=== PATIENT | male | born 1960 | race Caucasian/White ===

== ENCOUNTER → 2018-01-07 16:35 | Outpatient (CLI) | payer OTHER, SELFPAY ==
[2018-01-07 17:57] LABS: Albumin, Serum 3.9 g/dL (3.2-5.0)
== END ==
PROVIDERS: Family Provider Family Medicine; PCP Family Medicine; Referring Provider Specialist; Visit Provider Specialist
DX: M16.12 Unilateral primary osteoarthritis, left hip (principal)
CPT/HCPCS: 36415; 82040

== ENCOUNTER 2018-03-12 06:15 | Day surgery (SDC) | payer OTHER, SELFPAY ==
--- NOTE | 2018-02-25 23:17 | HP.PCM_ITS ---
History and Physical DATE OF SURGERY: 03/12/2018 SCHEDULED PROCEDURE: left total hip arthroplasty HISTORY OF PRESENT ILLNESS: This is a 57-year-old male who has been having ongoing pain in the left hip for approximately 3 years. Pain can reach as high as an 8/10. Pain is constant, dull, aching, sharp, and stabbing. Patient states he has increased pain going up and down stairs, driving any moderate distance, sitting for extended periods of time, and walking. Patient works for the [employer]. Patient does power line construction. He has increased pain with activities of daily living including getting dressed and leisure activities outdoor as well as his job. He feels unsafe climbing ladders or poles. Patient has fallen and tripped/stumbled secondary to his left hip. Patient has had a previous left [place] [address] Rafat Hess. Patient has tried conservative measures consisting of rest, ice, heat, elevation with temporary relief. He has had previous corticosteroid injection with only 3 days of relief with his last injection in November. Patient has tried home exercise plan with no relief in symptoms. He has tried oral medications consisting of Tylenol and Motrin which only occasionally helps. He denies previous surgery on the left hip. Patient has medical history pertinent for hypertension. He denies any recent chest pain, shortness of breath, fevers chills, or recent infections. Patient would like to proceed with a left total hip arthroplasty after failing conservative measures. REVIEW OF SYSTEMS: ROS: Const: Reports hard of hearing and vision problems, but denies anorexia, change in appetite, fever and weight change. CV: Denies chest pain, heart murmur, irregular heartbeat and peripheral vascular disease. Resp: Denies asthma, cough, pneumonia, sleep apnea, SOB, tuberculosis and wheezing. GI: Denies constipation, diarrhea, difficulty swallowing, heartburn, nausea, bloody stools and vomiting. : Urinary: denies incontinence. Musculo: Denies leg swelling, limp, trouble walking and weakness. Skin: Reports tattoo, but denies Raynaud's and history of shingles. Neuro: Denies ambulatory dysfunction, dizziness, numbness/tingling and tremor. Psych: Denies anxiety, depression, insomnia, mental illness and stress. Kemar/Lymph: Denies anemia, bleeding/bruising tendency and past transfusion. Reviewed, no changes. PAST MEDICAL HISTORY: Advance Care Plan: No Advance Directives Effective Date: 12/25/2016 PMH: Medical Problems: Arthritis, High Blood Pressure Accidents: None Surgical Hx: Tonsillectomy - (1966) NUNES [place] Teeth RT THR - (06/10/2012) JAMILA @ [facility] Anesthesia Complications: None Assistive Devices: Glasses Reviewed, no changes. 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 Personal Habits: Smoking: Patient has never smoked.Cigarette Use: Never Smoked Cigarettes.Alcohol: Denies use.Drug Use: Denies Use.Enjoy Exercising: Exercises 1-3 X/Week. Reviewed, no changes. VITALS: Ht: 70 Wt: 265lb Wt k.204 BMI: 38.0 BP: 107/66 Pulse: 74 Resp: 18 T: 98.2 T: 36.8C ALLERGIES: Latex - Rash Dilaudid MEDICATIONS: Oxycodone HCL 5 mg 1-2 tab by mouth every 4 hours, Meloxicam 7.5 mg 1 by mouth twice a day, Promethazine HCL 12.5 mg 1-2 tablets by mouth every 6 hours, Famotidine 20 mg 1 by mouth every day, Amoxicillin 500 mg 4 po 1 h prior to dental procedure, Lisinopril/Hydrochlorothiazide 10-12.5 mg 1po qday PRE-OP EXAM: General appearance:NORMAL Other: Eyes: Conjunctivae and lids: NORMAL Pupils: ERR Ears, Nose, Mouth, and Throat: NORMAL Other: Inspection of lips, teeth and gums: NORMAL Other: Neck: Examination of neck: no masses noted. Respiratory: Assessment of respiratory effort: NORMAL Other: Auscultation of lungs: clear to auscultation no wheezes, rhonchi or rales. Cardiovascular: Auscultation of heart: regular rate and rhythm, no murmurs, gallops or rubs. Exam of carotid arteries: NORMAL Other: Gastrointestinal: Exam of abdomen: soft, nontender, nondistended bowel sounds present. PHYSICAL EXAMINATION: Patient walks with an antalgic gait. Patient has increased pain with left hip range of motion causing groin pain. Left hip range of motion: Forward flexion is 85, internal rotation 30, external rotation 20. Sensation intact to light touch. Neurovascularly intact. IMAGING STUDIES: X-rays of the left hip reveal joint space narrowing, subchondral sclerosis, and osteophyte formation consistent with severe osteoarthritis. IMPRESSION: 1. Severe left hip osteoarthritis 2. Hypertension PLAN: Dr. Neil Meza did discuss and review with the patient all treatment options including surgical versus nonsurgical options. Patient does wish to proceed with the above-stated procedure. Potential risks, benefits, and complications of the procedure were discussed in detail including but not limited to , infection, nerve and blood vessel damage, persistent pain, numbness, tingling, paresthesias, blood clot, pulmonary embolism, and requirement for possible further surgery. The patient expressed full understanding and has no further questions for the doctor. Patient does agree to proceed with the above-stated procedure and has signed the surgery consent form. This dictation was created using voice recognition software. Phonetic and/or grammatical errors may exist.. ___ I have re-examined the patient. There are no clinical changes since date of exam. ___ See progress notes for changes. ___ Dictated on admission Date: Time: Signature:
[2018-02-28 15:11] VITALS: BP 139/86; PULSE 67; RESP 16; TEMP 37.2; O2SAT 97; BMI 37.2
--- NOTE | 2018-02-28 15:29 | SDCEKG_ITS ---
Test Reason : Blood Pressure : / mmHG Vent. Rate : 066 BPM Atrial Rate : 066 BPM P-R Int : 174 ms QRS Dur : 088 ms QT Int : 386 ms P-R-T Axes : 039 -15 005 degrees QTc Int : 404 ms Normal sinus rhythm Normal ECG Confirmed by EMMA ZAMORA, CAR ([id number]), make up editor SAAD CORREA ([id number]) on 03/04/2018 2:24:29 PM Referred By: Neil Meza Confirmed By:CAR CARTER MD
[2018-02-28 15:55] LABS: Absolute Lymphocyte Count 2.97 X10^3/ul (0.83-4.51); Absolute Neutrophil Count 5.5 X10^3/uL (2.0-7.7); Basophil# 0.02 X10^3/uL; Basophil% 0.2 % (0-1); Eosinophil# 0.25 X10^3/uL; Eosinophils% 2.6 % (0-5); Hemoglobin 14.6 g/dl (13.0-16.5); Lymphocyte # 2.97 X10^3/ul (4.0); Mean Corpuscular Hgb 30.2 pg (27.0-32.0); Mean Platelet Vol. 9.2 fl (6.2-12.0); Monocyte# 0.82 X10^3/uL; Monocyte% 8.6 % (0-10); Neutrophil # 5.51 X10^3/uL (2.7-7.7); Neutrophil % 57.5 % (47-70); Platelet Count 221 K/mm3 (150-450); RBC Distribution Width SD 42.1 fl (35.1-43.9); Red Blood Count 4.83 M/mm3 (4.6-6.2); White Blood Count 9.6 K/mm3 (4.4-11.0)
[2018-02-28 15:59] LABS: POSITIVE COUNT NO; POSITIVE DIFFERENTIAL NO; POSITIVE MORPHOLOGY NO
[2018-02-28 16:07] LABS: Anion Gap 9 (5-15); BUN 27 mg/dL (7-18); BUN/Creat Ratio 23.5 RATIO (10-20); Chloride 104 mmol/L (98-107); Creatinine, Serum 1.15 mg/dL (0.70-1.30); EST Glomerular Filtration Rate 70 mL/min (>60); Est Glom Filt Rate - Afr Amer 84 mL/min (>60); Estimated Creatinine Clearance 73.18 ml/min; Glucose 87 mg/dL (74-106); Potassium 3.9 mmol/L (3.5-5.1); Sodium Level 139 mmol/L (136-145)
[2018-03-12] VITALS (8 sets, daily range): BP systolic 88–138; BP diastolic 57–109; PULSE 67–79; RESP 12–16; TEMP 36.1–36.7; O2SAT 92–100; BMI 37.2
[2018-03-12] MEDS: Celecoxib 200 MG Capsule 400 MG PO (06:00)
[2018-03-12] MEDS: oxyCODONE HCl Cr 10 MG Tablet PO (06:00)
[2018-03-12] MEDS: Acetaminophen 500 MG Tablet 1000 MG PO ×2 (06:00→13:50)
[2018-03-12] MEDS: Lactated Ringers 1,000 ML 999 ML IV (06:35)
--- NOTE | 2018-03-12 06:54 | RAD_ITS ---
STUDY: X-RAY - LEFT HIP REASON FOR EXAM: Male, 57 years old. Left hip replacement. TECHNIQUE: 2 views of the hip. COMPARISON: None. FINDINGS: The patient is status post left total hip replacement. There is good alignment. Postoperative soft tissue changes. RAD/Hip Min 2 Views (Portable) IMPRESSION: Status post left hip replacement. There is good alignment. Postoperative soft tissue changes. Electronically Signed: Cheikh Obrien MD at 9:31 EST Tel [phone], Service support ,
--- NOTE | 2018-03-12 07:15 | RAD_ITS ---
STUDY: X-RAY - LEFT HIP REASON FOR EXAM: Male, 57 years old. Intraoperative assessment TECHNIQUE: One view of the hip was obtained. COMPARISON: None. FINDINGS: A limited view of the left hip was obtained intraoperatively. There is a prosthesis in the proximal femur. There is a prosthesis in the acetabulum. There is adequate alignment of the prostheses. Fluoroscopy time 3.4 seconds. Cumulative dose 0.65 mGy. RAD/Hip 1 view with Pelvis IMPRESSION: A limited view of the right hip was obtained intraoperatively during arthroplasty. Electronically Signed: Rachel Riggs MD at 0:13 EST Tel Direct: [phone], Service support ,
--- NOTE | 2018-03-12 08:13 | PCM.OPRPT ---
Report of Operation Date of Procedure: 03/12/18 Pre-Operative Diagnosis: Left primary hip osteoarthritis Post-Operative Diagnosis: Left primary hip osteoarthritis Surgery/Procedure Performed:: Left direct anterior total replacement Description of Surgical Findings:: Stable hip with equal leg lengths pairer odds: Amado Echavarria Type of Anesthesia:: Spinal Anesthesiologist: Riki Mcmahan Special Medications: 2 g Ancef, 1 g TXA at incision, 1 g TXA closure, 10 mg Decadron, joint cocktail (5 mg Duramorph, 30 mL of 0.5% Ropivicaine, 1000 units of epinephrine, 30 mg of Toradol) Specimen's removed: Bony cuts Estimated Blood Loss (mL): 350 Fluids Replaced: 800 mL crystalloid Description of Procedure: Components used: 1. Accolade 2 Nadia femoral stem size 7 127? 2. Mcdonald trident 2 acetabular shell size 52 mm 3. Mcdonald X3 polyethylene e 4. Mcdonald Biolox delta 36mm, 0mm femoral head Brief history operative indications: 57 yo M who failed conservative measures for their hip osteoarthritis. X-rays were consistent with osteoarthritis including joint space narrowing, osteophyte formation and subchondral cysts. Total hip replacement was discussed with the patient with risks and benefits including but not limited to blood loss, DVTs, PEs, neurovascular damage, dislocation, general risks of anesthesia including loss of life. Patient demonstrated an understanding medical clearance is obtained the patient was consented for surgery. Procedure: On the date of procedure the patient's L hip was marked in the preoperative area. Patient was then taken back to the operating room where anesthesia assumed control of the C-spine and airway and administered anesthetic. Patient was transferred to the operating table and placed in the supine position. The hips were placed at the break of the bed and a sacral bump was placed. The L lower extremity was then prepped out in a sterile fashion using chlorhexidine while the surgeon scrubbed. The PA was vital in the positioning of the patient. Upon reentering the room the L lower extremity was draped in the standard orthopedic fashion and the incision was marked. A timeout was called and everyone agreed upon the side, the site, the procedure be performed, antibody given, and patient's identity. At this time incision was made through skin, subcutaneous tissue, and fat down to fascia. The fascia was then incised and the TFL was retracted laterally. A retractor was placed on the lateral border of the femoral neck. Attention was directed to the inferior portion of the approach and all crossing vessels were identified and appropriately coagulated. A retractor was then placed on the medial portion of the femoral neck. The anterior capsule was then cleared of all soft tissue and then H shaped capsulotomy was made. The retractors were then placed inside the capsule. The femoral neck was identified and a cleanup cut was made. At this time a power corkscrew was used to remove the femoral head. Attention was then turned toward the acetabulum where the soft tissues were appropriately retracted and the acetabulum was sequentially reamed to 52 mm. A 52 mm cup was then selected and impacted into place. Acetabular liner was impacted into place and locking mechanism was verified. The position of the acetabular cup was then verified under live fluoroscopy. Attention was then turned to the femur. Soft tissue releases on the medial and lateral femoral neck were appropriately done, the leg was externally rotated and lateralized. A Grady retractor was placed medially and proximally to the greater trochanter this allowed appropriate visualization and exposure of the femoral canal. Rongeour was then used to remove excess lateral bone. A canal finder and entry broach were used to open the proximal canal. Once we verified we were down the femoral canal we subsequently broached up to a size 7 femur. The appropriate neck was placed in the previously selected head was trialed with a 0 mm neck. Traction was pulled and the hip was reduced with internal rotation. Once it was appropriately reduced and stability was checked. There was minimal shuck, equal leg lengths and appropriate stability with hyperextension and external rotation as well as with 90? flexion and internal rotation. Fluoroscopy was then also used to verify the position of the components and leg lengths using the contralateral side for comparison. The trial components were then dislocated the proximal femur was again exposed and the components were removed from the wound. The final components were verified and opened. The wound was copiously irrigated out with normal saline. The acetabulum was checked for any residual debris. The final components were placed and impacted. Traction and internal rotation were again used to reduce the hip. After adequate reduction the hip remained stable with appropriate leg lengths. The final components were once again checked with live fluoroscopy and were found to be satisfactory. The wound was then copiously irrigated with normal saline once more, and hemostasis was obtained. Closure was then done using #1 Vicryl runner to close the fascia. A 2-0 vicryl interuppted sutures were used to close the subcutaneous skin. A 3-0 Monocryl and Steri-Strips were used for final skin closure. A Silverlon dressing was placed. Patient was awakened by anesthesia and transferred to the [facility]. Patient was then transferred to the PACU for recovery. Postoperative plan: Patient will get 24 hours postop antibiotics. Patient will get in-house physical therapy and will be weight-bear as tolerated. Patient will follow up in office in 2 weeks for a wound check and x-rays. During the course of the procedure the physician certified ophthalmic surgical assistant played a vital role. His intimate knowledge of my steps in the procedure aided in safe and expedient completion of the procedure. The PA played a vital rolls in positioning particularly in obtaining the appropriate positioning of the sacral bump. The PA was also vital in the retraction of soft tissues during the exposure and especially the femoral work as this is a vital part of the procedure to prevent complications and fractures. The PA was also vital and protecting soft tissues during times of bony cuts and reaming. He also played a vital role in closure with my direct supervision. The PA was also important during reduction and dislocation of the joint and trials intraoperatively. Grafts/Implants Used: Nadia Accolade 2, Trident 2 - Complications None - Admit VTE Documentation VTE Present on Admission: No VTE Mechan Device Prophylaxis: SCD's, Thigh High DIPESH Hose VTE Pharm Prophylaxis ordered?: Yes
[2018-03-12] MEDS: Lactated Ringers 1,000 ML 125 ML IV ×2 (09:17→13:00)
[2018-03-12] MEDS: Scopolamine 1mg/72hr Patch 1 PATCH TD (09:18)
[2018-03-12] MEDS: Cefazolin 1 GM/50 ML BAG IV (14:30)
--- OUTSIDE RECORDS SUMMARY | 2018-06-13 11:14 | XMS RPT_ITS ---
:1960 Author Organization OHIP Care Team Providers Name Role Phone NEIL OQUENDO MD Attending Unavailable NEIL OQUENDO MD Primary Care Unavailable Darryn Lockwood Attending Unavailable Neil Meza Referring Unavailable Neil Meza Attending Unavailable Neil Meza Referring Unavailable NEIL OQUENDO Primary Care Unavailable Neil Meza Attending Unavailable Neil Meza Referring Unavailable NEIL OQUENDO Primary Care Unavailable PROBLEMS PROBLEMS DATE TYPE CONDITION / CODE ATTENDING STATUS SOURCE 03/08/2018 Unknown Z01.810 - Encounter Darryn Lockwood Active Ale for preprocedural [facility] examination / Repository Z01.810(ICD-10) 01/07/2018 Unknown M16.12 - Unilateral Neil Meza Active Ethan primary [facility] osteoarthritis, left Hospital hip / M16.12(ICD-10) Repository PROCEDURES PROCEDURES No Procedure Records FoundRESULTS RESULTS OPERATIVE REPORT Observed: 03/12/2018 Status: F Source: ALE 8:15 AM [facility] REPOSITORY [facility] Medical Records Department [address] [place] [address] Operative Report 03/12/18 0813 MR#: [id number] Acct: [id number] Name: AMADO VILLALTA Rep #: [id number] : 1960 57 From: Neil Meza MD PCP: Neil Oquendo MD Status: ADM IN Y Location: [place] [address] Report of Operation Date of Procedure: 03/12/18 Pre-Operative Diagnosis: Left primary hip osteoarthritis Post-Operative Diagnosis: Left primary hip osteoarthritis Surgery/Procedure Performed:: Left direct anterior total replacement Description of Surgical Findings:: Stable hip with equal leg lengths hydroelectric component machinist: Amado Echavarria Type of Anesthesia:: Spinal Anesthesiologist: Riki Mcmahan Special Medications: 2 g Ancef, 1 g TXA at incision, 1 g TXA closure, 10 mg Decadron, joint cocktail (5 mg Duramorph, 30 mL of 0.5% Ropivicaine, 1000 units of epinephrine, 30 mg of Toradol) Specimen's removed: Bony cuts Estimated Blood Loss (mL): 350 Fluids Replaced: 800 mL crystalloid Description of Procedure: Components used: 1. Accolade 2 [place] femoral stem size 7 127 2. Nadia trident 2 acetabular shell size 52 mm 3. [place] X3 polyethylene e 4. Nadia Biolox delta 36mm, 0mm femoral head Brief history operative indications: 57 yo M who failed conservative measures for their hip osteoarthritis. X-rays were consistent with osteoarthritis including joint space narrowing, osteophyte formation and subchondral cysts. Total hip replacement was discussed with the patient with risks and benefits including but not limited to blood loss, DVTs, PEs, neurovascular damage, dislocation, general risks of anesthesia including loss of life. Patient demonstrated an understanding medical clearance is obtained the patient was consented for surgery. Procedure: On the date of procedure the patient's L hip was marked in the preoperative area. Patient was then taken back to the operating room where anesthesia assumed control of the C-spine and airway and administered anesthetic. Patient was transferred to the operating table and placed in the supine position. The hips were placed at the break of the bed and a sacral bump was placed. The L lower extremity was then prepped out in a sterile fashion using chlorhexidine while the surgeon scrubbed. The PA was vital in the positioning of the patient. Upon reentering the room the L lower extremity was draped in the standard orthopedic fashion and the incision was marked. A timeout was called and everyone agreed upon the side, the site, the procedure be performed, antibody given, and patient's identity. At this time incision was made through skin, subcutaneous tissue, and fat down to fascia. The fascia was then incised and the TFL was retracted laterally. A retractor was placed on the lateral border of the femoral neck. Attention was directed to the inferior portion of the approach and all crossing vessels were identified and appropriately coagulated. A retractor was then placed on the medial portion of the femoral neck. The anterior capsule was then cleared of all soft tissue and then H shaped capsulotomy was made. The retractors were then placed inside the capsule. The femoral neck was identified and a cleanup cut was made. At this time a power corkscrew was used to remove the femoral head. Attention was then turned toward the acetabulum where the soft tissues were appropriately retracted and the acetabulum was sequentially reamed to 52 mm. A 52 mm cup was then selected and impacted into place. Acetabular liner was impacted into place and locking mechanism was verified. The position of the acetabular cup was then verified under live fluoroscopy. Attention was then turned to the femur. Soft tissue releases on the medial and lateral femoral neck were appropriately done, the leg was externally rotated and lateralized. A Grady retractor was placed medially and proximally to the greater trochanter this allowed appropriate visualization and exposure of the femoral canal. Rongeour was then used to remove excess lateral bone. A canal finder and entry broach were used to open the proximal canal. Once we verified we were down the femoral canal we subsequently broached up to a size 7 femur. The appropriate neck was placed in the previously selected head was trialed with a 0 mm neck. Traction was pulled and the hip was reduced with internal rotation. Once it was appropriately reduced and stability was checked. There was minimal shuck, equal leg lengths and appropriate stability with hyperextension and external rotation as well as with 90 flexion and internal rotation. Fluoroscopy was then also used to verify the position of the components and leg lengths using the contralateral side for comparison. The trial components were then dislocated the proximal femur was again exposed and the components were removed from the wound. The final components were verified and opened. The wound was copiously irrigated out with normal saline. The acetabulum was checked for any residual debris. The final components were placed and impacted. Traction and internal rotation were again used to reduce the hip. After adequate reduction the hip remained stable with appropriate leg lengths. The final components were once again checked with live fluoroscopy and were found to be satisfactory. The wound was then copiously irrigated with normal saline once more, and hemostasis was obtained. Closure was then done using #1 Vicryl runner to close the fascia. A 2-0 vicryl interuppted sutures were used to close the subcutaneous skin. A 3-0 Monocryl and Steri-Strips were used for final skin closure. A Silverlon dressing was placed. Patient was awakened by anesthesia and transferred to the [facility]. Patient was then transferred to the PACU for recovery. Postoperative plan: Patient will get 24 hours postop antibiotics. Patient will get in-house physical therapy and will be weight-bear as tolerated. Patient will follow up in office in 2 weeks for a wound check and x-rays. During the course of the procedure the physician assistant family teacher played a vital role. His intimate knowledge of my steps in the procedure aided in safe and expedient completion of the procedure. The PA played a vital rolls in positioning particularly in obtaining the appropriate positioning of the sacral bump. The PA was also vital in the retraction of soft tissues during the exposure and especially the femoral work as this is a vital part of the procedure to prevent complications and fractures. The PA was also vital and protecting soft tissues during times of bony cuts and reaming. He also played a vital role in closure with my direct supervision. The PA was also important during reduction and dislocation of the joint and trials intraoperatively. Grafts/Implants Used: [place] Accolade 2, Trident 2 - Complications None - Admit VTE Documentation VTE Present on Admission: No VTE Mechan Device Prophylaxis: SCD's, Thigh High DIPESH Hose VTE Pharm Prophylaxis ordered?: Yes 03/12/18 0815 <Electronically signed by Neil Meza MD> Date Neil Meza MD CC: Neil Oquendo MD; Neil Meza MD Signed HIP MIN 2 VIEWS Observed: 03/12/2018 Status: F Source: ALE (PORTABLE) 6:57 AM [facility] REPOSITORY [facility] Imaging Services [address] [place] [address] Hip Min 2 Views (Portable) MR#: [id number] Acct: [id number] Name: AMADO VILLALTA Rep #: [id number] : 1960 M 57 From: Cheikh Obrien MD PCP: Neil Oquendo MD Status: ADM IN Study: Hip Min 2 Views (Portable) Date of Exam: 03/12/18 Exam# [id number] Ordering Dr: Neil Meza MD STUDY: X-RAY - LEFT HIP REASON FOR EXAM: Male, 57 years old. Left hip replacement. TECHNIQUE: 2 views of the hip. COMPARISON: None. FINDINGS: The patient is status post left total hip replacement. There is good alignment. Postoperative soft tissue changes. RAD/Hip Min 2 Views (Portable) IMPRESSION: Status post left hip replacement. There is good alignment. Postoperative soft tissue changes. Electronically Signed: Cheikh Obrien MD at 9:31 EST Tel [phone], Service support , CC: Neil Oquendo MD; Neil Meza MD Melting Supervisor: Signed HIP 1 VIEW WITH Observed: 03/12/2018 Status: F Source: ALE PELVIS 12:10 AM [facility] REPOSITORY [facility] Imaging Services [address] [place] [address] Hip 1 view with Pelvis MR#: [id number] Acct: [id number] Name: AMADO VILLALTA Rep #: [id number] : 1960 M 57 From: Rachel Riggs MD PCP: Neil Oquendo MD Status: ADM IN Study: Hip 1 view with Pelvis Date of Exam: 03/12/18 Exam# [id number] Ordering Dr: Neil Meza MD STUDY: X-RAY - LEFT HIP REASON FOR EXAM: Male, 57 years old. Intraoperative assessment TECHNIQUE: One view of the hip was obtained. COMPARISON: None. FINDINGS: A limited view of the left hip was obtained intraoperatively. There is a prosthesis in the proximal femur. There is a prosthesis in the acetabulum. There is adequate alignment of the prostheses. Fluoroscopy time 3.4 seconds. Cumulative dose 0.65 mGy. RAD/Hip 1 view with Pelvis IMPRESSION: A limited view of the right hip was obtained intraoperatively during arthroplasty. Electronically Signed: Rachel Riggs MD at 0:13 EST Tel Direct: [phone], Service support , CC: Neil Oquendo MD; Neil Meza MD Melting Supervisor: Signed 12 LEAD ELECTROCARDIOGRAM Observed: 03/04/2018 Status: F Source: HOOD 2:25 PM [facility] REPOSITORY [facility] Cardiovascular Services [address] [place] [address] EKG - [facility] 02/28/18 1535 MR#: [id number] Acct: [id number] Name: AMADO VILLALTA Rep #: [id number] : 1960 57 From: Darryn Lockwood MD Attending Dr: Neil Meza MD Status: PRE IN Ordering Dr: Neil Meza MD Date: 02/28/18 Location: [facility] Sex: M C Admitted: Test Reason : Blood Pressure : / mmHG Vent. Rate : 066 BPM Atrial Rate : 066 BPM P-R Int : 174 ms QRS Dur : 088 ms QT Int : 386 ms P-R-T Axes : 039 -15 005 degrees QTc Int : 404 ms Normal sinus rhythm Normal ECG Confirmed by EMMA ZAMORA, DARRYN ([id number]), editorial director SAAD CORREA ([id number]) on 03/04/2018 2:24:29 PM Referred By: Neil Meza Confirmed By:DARRYN LOCKWOOD MD 03/04/18 1424 Date Darryn Lockwood MD CC: Neil Oquendo MD; Neil Meza MD Date Dictated: 02/28/181534 Date Transcribed: 02/28/181534 Melting Supervisor: Signed CBC W/DIFF, AUTOMATED Collected: 02/28/2018 Status: F Source: ALE 3:45 PM [facility] REPOSITORY TYPE CODE TESTS RESULT OUT OF RANGE REFERENCE UNITS LAB L100.1000 4.4-11.0 K/mm3 Normal WBC 9.6 LAB L100.1200 4.6-6.2 M/mm3 Normal RBC 4.83 LAB L100.1300 13.0-16.5 g/dl Normal HGB 14.6 LAB L100.1400 40-54 % Normal HCT 43.0 LAB L100.1500 80-94 fL Normal MCV 89.0 LAB L100.1600 27.0-32.0 pg Normal MCH 30.2 LAB L100.1700 32-36 g/gl Normal MCHC 34.0 LAB L100.1810 11.6-14.6 % Normal RDW CV 13.0 LAB L100.1820 35.1-43.9 fl Normal RDW SD 42.1 LAB L100.1900 150-450 K/mm3 Normal PLT 221 LAB L100.2000 6.2-12.0 fl Normal MPV 9.2 LAB L100.2100 47-70 % Normal NEUT% 57.5 LAB L100.2200 19-41 % Normal LY% 31.0 LAB L100.2300 0-10 % Normal MONO% 8.6 LAB L100.2400 0-5 % Normal EO% 2.6 LAB L100.2500 0-1 % Normal BASO% 0.2 LAB L100.2550 0.0-0.9 % Normal IM GRAN % 0.100 Result Comment: IG% - Immature Granulocytes (promyelocytes, myelocytes and metamyelocytes) > 1% indicates that a LEFT SHIFT is Present. LAB L100.2620 2.0-7.7 X10 3/uL Normal Absolute Neut 5.5 LAB L100.2720 0.83-4.51 X10 3/ul Normal Absolute Lymph 2.97 Performed By: #### L100.0100 #### [facility] [address] [place], [place], [address] BASIC METABOLIC Collected: 02/28/2018 Status: F Source: HOOD PROFILE (BMP) 3:45 PM [facility] REPOSITORY TYPE CODE TESTS RESULT OUT OF RANGE REFERENCE UNITS LAB L501.0100 74-106 mg/dL Normal GLU 87 Result Comment: Please note revised GLUCOSE reference range effective 2017. LAB L501.1000 7-18 mg/dL High BUN 27 LAB L501.1100 0.70-1.30 mg/dL Normal CREAT,SERUM 1.15 Result Comment: The validity of the calculated GFR AND GFRAA in patients over 70 years has not been determined. Clinical correlation is essential. LAB L501.1110 >60 mL/min Normal EST GFR 70 Result Comment: Non- GFR Calc LAB L501.1115 >60 mL/min Normal EST GFR - AA 84 Result Comment: GFR Calc LAB L501.1255 ml/min Normal Estimated CRCL 73.18 LAB L501.1300 10-20 RATIO High BUN/CRE 23.5 LAB L501.2200 8.5-10 mg/dL Normal .1 CA 9.0 LAB L501.5300 136-14 mmol/L Normal 5 NA 139 LAB L501.5600 3.5-5. mmol/L Normal 1 K 3.9 LAB L501.5900 98-107 mmol/L Normal CL 104 LAB L501.6100 21.0-3 mmol/L Normal 2.0 CO2 26.0 LAB L501.6200 5-15 Normal GAP 9 Performed By: #### L500.2500 #### [facility] [address] [place], [address] Observed: 02/28/2018 Status: F Source: HOOD MRSA/SAID SCREEN 3:45 PM [facility] REPOSITORY MRSA/SAID SCRN S. AUREUS S. aureus Negative MRSA MRSA Negative Performed By: #### M100.651 #### [facility] [address] [place], [address] HISTORY AND PHYSICAL Observed: 02/25/2018 Status: F Source: HOOD EXAM 11:17 PM [facility] REPOSITORY [facility] Medical Records Department [address] [place] [address] History and Physical 02/25/18 2316 MR#: [id number] Acct: [id number] Name: AMADO VILLALTA Rep #: [id number] : 1960 57 From: Amado Echavarria PA-C PCP: Neil Oquendo MD Status: PRE IN Y Location: [facility] History and Physical DATE OF SURGERY: 03/12/2018 SCHEDULED PROCEDURE: left total hip arthroplasty HISTORY OF PRESENT ILLNESS: This is a 57-year-old male who has been having ongoing pain in the left hip for approximately 3 years. Pain can reach as high as an 8/10. Pain is constant, dull, aching, sharp, and stabbing. Patient states he has increased pain going up and down stairs, driving any moderate distance, sitting for extended periods of time, and walking. Patient works for the [employer]. Patient does power line construction. He has increased pain with activities of daily living including getting dressed and leisure activities outdoor as well as his job. He feels unsafe climbing ladders or poles. Patient has fallen and tripped/stumbled secondary to his left hip. Patient has had a previous left [place] hip [place] [address] Rafat Hess. Patient has tried conservative measures consisting of rest, ice, heat, elevation with temporary relief. He has had previous corticosteroid injection with only 3 days of relief with his last injection in November. Patient has tried home exercise plan with no relief in symptoms. He has tried oral medications consisting of Tylenol and Motrin which only occasionally helps. He denies previous surgery on the left hip. Patient has medical history pertinent for hypertension. He denies any recent chest pain, shortness of breath, fevers chills, or recent infections. Patient would like to proceed with a left total hip arthroplasty after failing conservative measures. REVIEW OF SYSTEMS: ROS: Const: Reports hard of hearing and vision problems, but denies anorexia, change in appetite, fever and weight change. CV: Denies chest pain, heart murmur, irregular heartbeat and peripheral vascular disease. Resp: Denies asthma, cough, pneumonia, sleep apnea, SOB, tuberculosis and wheezing. GI: Denies constipation, diarrhea, difficulty swallowing, heartburn, nausea, bloody stools and vomiting. : Urinary: denies incontinence. Musculo: Denies leg swelling, limp, trouble walking and weakness. Skin: Reports tattoo, but denies Raynaud's and history of shingles. Neuro: Denies ambulatory dysfunction, dizziness, numbness/tingling and tremor. Psych: Denies anxiety, depression, insomnia, mental illness and stress. Kemar/Lymph: Denies anemia, bleeding/bruising tendency and past transfusion. Reviewed, no changes. PAST MEDICAL HISTORY: Advance Care Plan: No Advance Directives Effective Date: 12/25/2016 PMH: Medical Problems: Arthritis, High Blood Pressure Accidents: None Surgical Hx: Tonsillectomy - (1966) NUNES [place] Teeth RT THR - (06/10/2012) MSK @ [facility] Anesthesia Complications: None Assistive Devices: Glasses Reviewed, no changes. 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 Personal Habits: Smoking: Patient has never smoked.Cigarette Use: Never Smoked Cigarettes.Alcohol: Denies use.Drug Use: Denies Use.Enjoy Exercising: Exercises 1-3 X/Week. Reviewed, no changes. VITALS: Ht: 70 Wt: 265lb Wt k.204 BMI: 38.0 BP: 107/66 Pulse: 74 Resp: 18 T: 98.2 T: 36.8C ALLERGIES: Latex - Rash Dilaudid MEDICATIONS: Oxycodone HCL 5 mg 1-2 tab by mouth every 4 hours, Meloxicam 7.5 mg 1 by mouth twice a day, Promethazine HCL 12.5 mg 1-2 tablets by mouth every 6 hours, Famotidine 20 mg 1 by mouth every day, Amoxicillin 500 mg 4 po 1 h prior to dental procedure, Lisinopril/Hydrochlorothiazide 10-12.5 mg 1po qday PRE-OP EXAM: General appearance:NORMAL Other: Eyes: Conjunctivae and lids: NORMAL Pupils: ERR Ears, Nose, Mouth, and Throat: NORMAL Other: Inspection of lips, teeth and gums: NORMAL Other: Neck: Examination of neck: no masses noted. Respiratory: Assessment of respiratory effort: NORMAL Other: Auscultation of lungs: clear to auscultation no wheezes, rhonchi or rales. Cardiovascular: Auscultation of heart: regular rate and rhythm, no murmurs, gallops or rubs. Exam of carotid arteries: NORMAL Other: Gastrointestinal: Exam of abdomen: soft, nontender, nondistended bowel sounds present. PHYSICAL EXAMINATION: Patient walks with an antalgic gait. Patient has increased pain with left hip range of motion causing groin pain. Left hip range of motion: Forward flexion is 85, internal rotation 30, external rotation 20. Sensation intact to light touch. Neurovascularly intact. IMAGING STUDIES: X-rays of the left hip reveal joint space narrowing, subchondral sclerosis, and osteophyte formation consistent with severe osteoarthritis. IMPRESSION: 1. Severe left hip osteoarthritis 2. Hypertension PLAN: Dr. Neil Meza did discuss and review with the patient all treatment options including surgical versus nonsurgical options. Patient does wish to proceed with the above-stated procedure. Potential risks, benefits, and complications of the procedure were discussed in detail including but not limited to , infection, nerve and blood vessel damage, persistent pain, numbness, tingling, paresthesias, blood clot, pulmonary embolism, and requirement for possible further surgery. The patient expressed full understanding and has no further questions for the doctor. Patient does agree to proceed with the above-stated procedure and has signed the surgery consent form. This dictation was created using voice recognition software. Phonetic and/or grammatical errors may exist.. ___ I have re-examined the patient. There are no clinical changes since date of exam. ___ See progress notes for changes. ___ Dictated on admission Date: Time: Signature: 02/25/187 <Electronically signed by Amado Echavarria PA-C> Date Amado Echavarria PA-C Cosignmunir Signature: Date (if applicable) CC: Amado KEBEDE; Neil Oquendo MD Signed VL AORTA / ILIACS Observed: 01/18/2018 Status: F Source: [employer] 7:17 AM [facility] REPOSIT[facility] ORIGINAL Limited ultrasound of the retroperitoneum with attention to the abdominal aorta HISTORY: Screening for abdominal aortic aneurysm. Family history of abdominal aortic aneurysm. COMPARISON: CT scan 08/04/2015 There is mild atherosclerotic irregularity of the abdominal aorta. It is normal in caliber without aneurysmal dilatation. The common iliac arteries are unremarkable. The IVC is unremarkable. No free fluid identified. IMPRESSION: No evidence for abdominal aortic aneurysm. Interpreted By: Rafat Dawn MD Preliminary Report By: Rafat Dawn MD Electronically Signed By: Rafat Dawn MD Dictated Date: 01/18/2018 8:02:13 AM Prelim Date: 01/18/2018 8:02:13 AM Sign Date: 01/18/2018 8:03:12 AM ALBUMIN, SERUM Collected: 01/07/2018 Status: F Source: HOOD 4:41 PM [facility] REPOSITORY TYPE CODE TESTS RESULT OUT OF RANGE REFERENCE UNITS LAB L501.1800 3.2-5.0 g/dL Normal ALB 3.9 Performed By: #### L501.1800 #### [facility] [address] [place], [address] ALLERGIES ALLERGIES DATE TYPE / CODE NAME / CODE REACTION SEVERITY SOURCE 02/28/2018 Drug hydromorphon Vomiting Unknown [facility] Allergy/4160 e/[id number] Hospital 24655(SNOMED (RXNORM) Repository CT) 02/28/2018 Drug latex/Q24961 Rash Unknown [facility] Allergy/4160 8921(RXNORM) Hospital 79401(SNOMED Repository CT) ENCOUNTERS ENCOUNTERS ADMIT/DISCHARGE ACCOUNT NUMBER ADMITTING ENCOUNTER LOCATION SOURCE CLASS 03/12/2018/03/12/20 [id number] Ambulatory Ale [address] ding:AC Repository 02/28/2018 [id number] Ambulatory BMSBuilding: Ale [facility] Repository 01/18/2018/01/19/20 [id number] Ambulatory COOPER Cooper [address] [place] [address] ding:[facility] Repository 01/07/2018 [id number] Ambulatory [facility] ding:LAB Repository PAYERS PAYERS ENCOUNTER GUARANTOR PAYER SUBSCRIBER SOURCE 03/12/2018 AMADO Myriam Primary AMADO Aguilera [id number] Insurance:AULTCAREPol FISCUSDOB: [facility] Number: [id number] [id number] Repository 16571Zrn: (330) Date:0133-20-23[address] () [address], [place] [address]YU: 03/12/2018 Secondary NOT GIVENUNK Ethan Insurance:SELF PAY [facility] Number: Effective Repository Date:2018-03-12 02/28/2018 AMADO Miguel Primary AMADO Aguilera [id number] Insurance:AULTCAREPol FISCUSDOB: [facility] Number: [id number], [place] [id number] Repository [address]Skj: ([phone]) Date:5572-29-54YZ [address] () [address], [place] [address]BA: 02/28/2018 Secondary NOT GIVENUNK Ethan Insurance:SELF PAY [facility] Number: Effective Repository Date:2018-02-28 01/18/2018 AMADO Miguel Primary AMADO Miguel [facility] FISCUSDOB: Insurance:AULTCARE FISCUSDOB: [facility] [id number] Number: [id number] [facility] [id number] [place], [place] Date:2018-01-18 - [place] [address]~[email or web address] [id number] [id number]: ([phone]) .COMTel: (330) Name:HOSPICE FELLOW [address] [phone] [place] [address] (HP)Tel: (268) (CT)Tel: [phone]: (wp) [phone] ([phone]) [phone] 01/07/2018 AMADO Miguel Primary AMADO Miguel Ale [id number] Insurance:[facility] FISCUSDOB: [facility] Number: [id number] [place], [place] [id number] Repository [address]Efb: ([phone]) Date:9441-27-45ZQ [phone] (HP) [address], [place] [address]WM: 01/07/2018 Secondary NOT GIVENUNK Ethan Insurance:SELF PAY [facility] Number: Effective Repository Date:2018-01-07
--- OUTSIDE RECORDS SUMMARY | 2018-06-14 12:45 | XMS RPT_ITS ---
:1960 Author Organization OHIP Care Team Providers Name Role Phone Darryn Lockwood Attending Unavailable Neil Meza Referring Unavailable Neil Meza Attending Unavailable Neil Meza Referring Unavailable NEIL OQUENDO Primary Care Unavailable Neil Meza Attending Unavailable Neil Meza Referring Unavailable NEIL OQUENDO Primary Care Unavailable NEIL OQUENDO MD Attending Unavailable NEIL OQUENDO MD Primary Care Unavailable PROBLEMS PROBLEMS DATE TYPE CONDITION / CODE ATTENDING STATUS SOURCE 03/08/2018 Unknown Z01.810 - Encounter Darryn Lockwood Active [place] for preprocedural [facility] examination / Repository Z01.810(ICD-10) 01/07/2018 Unknown M16.12 - Unilateral Neil Meza Active [place] primary [facility] osteoarthritis, left Hospital hip / M16.12(ICD-10) Repository PROCEDURES PROCEDURES No Procedure Records FoundRESULTS RESULTS OPERATIVE REPORT Observed: 03/12/2018 Status: F Source: [place] 8:15 AM [facility] REPOSITORY [facility] Medical Records Department [address] [place] [address] Operative Report 03/12/18 0813 MR#: [id number] Acct: [id number] Name: AMADO VILLALTA Rep #: [id number] : 1960 57 From: Neil Meza MD PCP: Neil Oquendo MD Status: ADM IN Y Location: [place] [address] Report of Operation Date of Procedure: 03/12/18 Pre-Operative Diagnosis: Left primary hip osteoarthritis Post-Operative Diagnosis: Left primary hip osteoarthritis Surgery/Procedure Performed:: Left direct anterior total replacement Description of Surgical Findings:: Stable hip with equal leg lengths mainspring winder: Amado Echavarria Type of Anesthesia:: Spinal Anesthesiologist: [...] of Procedure: Components used: 1. Accolade 2 [place] femoral stem size 7 127 2. Nadia trident 2 acetabular shell size 52 mm 3. [place] X3 polyethylene e 4. Nadia Biolox delta [...] awakened by anesthesia and transferred to [facility]. Patient was then transferred to the PACU for recovery. Postoperative plan: Patient will get 24 hours postop antibiotics. Patient will get in-house physical therapy and will be weight-bear as tolerated. Patient will follow up in office in 2 weeks for a wound check and x-rays. During the course of the procedure the physician administrative assistant receptionist played a vital role. His intimate knowledge [...] the joint and trials intraoperatively. Grafts/Implants Used: [place] Accolade 2, Trident 2 - Complications None - Admit VTE Documentation VTE Present on Admission: No VTE Mechan Device Prophylaxis: SCD's, Thigh High DIPESH Hose VTE Pharm Prophylaxis ordered?: Yes 03/12/18 0815 <Electronically signed by Neil Meza MD> Date Neil Meza MD CC: Neil Oquendo MD; Neil Meza MD Signed HIP MIN 2 VIEWS Observed: 03/12/2018 Status: F Source: [place]LE (PORTABLE) 6:57 AM [facility] REPOSITORY [facility] Imaging Services [address] [place] [address] Hip Min 2 Views (Portable) MR#: [id number] Acct: [id number] Name: AMADO VILLALTA Rep #: [id number] : 1960 M 57 From: Cheikh Obrien MD PCP: Neil Oquendo MD Status: ADM IN Study: Hip Min 2 Views (Portable) Date of Exam: 03/12/18 Exam# [id number] Ordering Dr: Neil Meza MD STUDY: X-RAY [...] Cheikh Obrien MD at 9:31 EST Tel [phone], Service support , CC: Neil Oquendo MD; Neil Meza MD Shirt Folding Machine Operator: Signed HIP 1 VIEW WITH Observed: 03/12/2018 Status: F Source: [place]LE PELVIS 12:10 AM [facility] REPOSITORY [facility] Imaging Services [address] [place] [address] Hip 1 view with Pelvis MR#: [id number] Acct: [id number] Name: AMADO VILLALTA Rep #: [id number] : 1960 M 57 From: Rachel Riggs MD PCP: Neil Oquendo MD Status: ADM IN Study: Hip 1 view with Pelvis Date of Exam: 03/12/18 Exam# [id number] Ordering Dr: Neil Meza MD STUDY: X-RAY [...] Riggs MD at 0:13 EST Tel Direct: [phone], Service support , CC: Neil Oquendo MD; Neil Meza MD Shirt Folding Machine Operator: Signed 12 LEAD ELECTROCARDIOGRAM Observed: 03/04/2018 Status: F Source: [place] 2:25 PM [facility]POS[facility] Cardiovascular Services [address] [place] [address] EKG - [facility] 02/28/18 1535 MR#: [id number] Acct: [id number] Name: AMADO VILLALTA Rep #: [id number] : 1960 57 From: Darryn Lockwood MD Attending Dr: Neil Meza MD Status: PRE IN Ordering Dr: Neil Meza MD Date: 02/28/18 Location: [facility] Sex: M C Admitted: Test Reason : Blood Pressure : / mmHG Vent. Rate : 066 BPM Atrial Rate : 066 BPM P-R Int : 174 ms QRS Dur : 088 ms QT Int : 386 ms P-R-T Axes : 039 -15 005 degrees QTc Int : 404 ms Normal sinus rhythm Normal ECG Confirmed by EMMA ZAMORA, DARRYN ([id number]), editor producer SAAD CORREA ([id number]) on 03/04/2018 2:24:29 PM Referred By: Neil Meza Confirmed By:DARRYN LOCKWOOD MD 03/04/18 1424 Date Darryn Lockwood MD CC: Neil Oquendo MD; Neil Meza MD Date Dictated: 02/28/181534 Date Transcribed: 02/28/181534 Shirt Folding Machine Operator: Signed CBC W/DIFF, AUTOMATED Collected: 02/28/2018 Status: F Source: [place] 3:45 PM [facility] REPOSITORY TYPE CODE TESTS RESULT OUT OF [...] Lymph 2.97 Performed By: #### L100.0100 #### [facility] [address] [place], [place], [address] BASIC METABOLIC Collected: 02/28/2018 Status: F Source: [place] PROFILE (BMP) 3:45 PM [facility] REPOSITORY TYPE CODE TESTS RESULT OUT OF [...] GAP 9 Performed By: #### L500.2500 #### [facility] [address] [place], [address] Observed: 02/28/2018 Status: F Source: [place] MRSA/SAID SCREEN 3:45 PM [facility] REPOSITORY MRSA/SAID SCRN S. AUREUS S. aureus Negative MRSA MRSA Negative Performed By: #### M100.651 #### [facility] [address] [place], [address] HISTORY AND PHYSICAL Observed: 02/25/2018 Status: F Source: [place] EXAM 11:17 PM [facility] REPOSITORY [facility] Medical Records Department [address] [place] [address] History and Physical 02/25/18 2316 MR#: [id number] Acct: [id number] Name: AMADO VILLALTA Rep #: [id number] : 1960 57 From: Amado Echavarria PA-C PCP: Neil Oquendo MD Status: PRE IN Y Location: [facility] History and Physical DATE OF SURGERY: 03/12/2018 [...] time, and walking. Patient works for the [employer]. Patient does power line construction. He [...] None Surgical Hx: Tonsillectomy - (1966) NUNES C[place] Teeth RT THR - (06/10/2012) MSK @ [facility] Anesthesia Complications: None Assistive Devices: Glasses Reviewed, no changes. 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 Personal [...] / ILIACS Observed: 01/18/2018 Status: F Source: [place] 7:17 AM [facility] REPOS[facility] ORIGINAL Limited ultrasound [...] ALBUMIN, SERUM Collected: 01/07/2018 Status: F Source: [place] 4:41 PM [facility] REPOSITORY TYPE CODE TESTS RESULT OUT OF RANGE REFERENCE UNITS LAB L501.1800 3.2-5.0 g/dL Normal ALB 3.9 Performed By: #### L501.1800 #### [facility] [address] [place], [address] ALLERGIES ALLERGIES DATE TYPE / CODE NAME / CODE REACTION SEVERITY SOURCE 02/28/2018 Drug hydromorphon Vomiting Unknown [facility] Allergy/4160 e/[id number] Hospital 58353(SNOMED (RXNORM) Repository CT) 02/28/2018 Drug latex/C63566 Rash Unknown [facility] Allergy/4160 8921(RXNORM) Hospital 34911(SNOMED Repository CT) ENCOUNTERS ENCOUNTERS ADMIT/DISCHARGE ACCOUNT NUMBER ADMITTING ENCOUNTER LOCATION SOURCE CLASS 03/12/2018/03/12/20 [id number] Ambulatory [place] [address] ding:AC Repository 02/28/2018 [id number] Ambulatory BMSBuilding: Ale [facility] Repository 01/18/2018/01/19/20 [id number] Ambulatory COOPER Cooper [address] [place] [address] ding:[facility] Repository 01/07/2018 [id number] Ambulatory [facility] ding:LAB Repository PAYERS PAYERS ENCOUNTER GUARANTOR PAYER SUBSCRIBER SOURCE 03/12/2018 AMADO Myriam Primary AMADO Aguilera [id number] Insurance:AULTCAREPol FISCUSDOB: [facility] Number: [id number] [id number] Repository 15260Xwk: (330) Date:[id number], [place] [address]XL: 03/12/2018 Secondary NOT GIVENUNK [place] Insurance:SELF PAY [facility] Number: Effective Repository Date:2018-03-12 02/28/2018 AMADO Miguel Primary AMADO Aguilera [id number] Insurance:AULTCAREPol FISCUSDOB: [facility] Number: [id number], [place] [id number] Repository [address]Nnh: (330) Date:[id number] () [address], [place] [address]TQ: 02/28/2018 Secondary NOT GIVENUNK [place] Insurance:SELF PAY [facility] Number: Effective Repository Date:2018-02-28 01/18/2018 AMADO Miguel Primary AMADO Miguel [facility] FISCUSDOB: Insurance:AULTCARE FISCUSDOB: [facility] [id number] Number: [id number] [facility] [id number], [place] Date:2018-01-18 [place] [email or web address] [id number]: [phone] .COMTel: (330) Name:AUDIO PRODUCTION MANAGER [phone] [place] [address] (HP)Tel: (119) (ZD)Tel: [phone]: (wp) [phone] 01/07/2018 AMADO Miguel Primary AMADO Miguel Ale [id number] Insurance:[facility] FISCUSDOB: [facility] Number: [id number], [place] [id number] Repository [address]Nvm: ([phone]) Date:3656-21-91[phone] (HP) [address], [place] [address]YW: 01/07/2018 Secondary NOT GIVENUNK [place] Insurance:SELF PAY [facility] Number: Effective Repository Date:2018-01-07
== END 2018-03-12 15:15 | disposition home or self-care (01) ==
PROVIDERS: Family Provider Family Medicine; PCP Family Medicine; Referring Provider Specialist; Visit Provider Specialist
PROC: (CPT 27284; principal; 2018-03-12 06:50)
DX: M16.12 Unilateral primary osteoarthritis, left hip (principal); I10 Essential (primary) hypertension; Z79.1 Long term (current) use of non-steroidal anti-inflammatories (NSAID); Z79.891 Long term (current) use of opiate analgesic; Z79.899 Other long term (current) drug therapy
CPT/HCPCS: 27130; 73501; 73502; 76000; 80048; 85025; 87081; 93005; 97162; C1776; J7120; A4216; J2405

== ENCOUNTER 2022-05-31 05:57 | Emergency (ER) | payer OTHER, SELFPAY ==
[2022-05-31 05:58] VITALS: BP 141/87; PULSE 75; RESP 18; TEMP 36.9; O2SAT 95; BMI 38.7
--- NOTE | 2022-05-31 07:12 | CT_ITS ---
EXAM: CT NECK WITHOUT AND WITH INTRAVENOUS CONTRAST CLINICAL INDICATION: Parotid stone ?? RIGHT JAW PAIN AND SWELLING X 3 DAYS TECHNIQUE: Helically acquired images were obtained of the neck without and with intravenous contrast. This CT exam was performed using one or more of the following dose reduction techniques: automated exposure control, adjustment of the mA and/or kV according to patient size, and/or use of iterative reconstruction technique. This report was created using [employer] report generation technology. CONTRAST: IV 100mL Isovue-370 COMPARISON: None. FINDINGS: NASOPHARYNX: Unremarkable. SUPRAHYOID NECK: Unremarkable. Oropharynx, oral cavity, parapharyngeal space and retropharyngeal space are unremarkable. INFRAHYOID NECK: Unremarkable. The larynx, hypopharynx and supraglottis are unremarkable. SUBMANDIBULAR/PAROTID GLANDS: Some enlargement/inflammation of the right parotid gland. THYROID: Unremarkable. No enlarged or calcified nodules. BONES/JOINTS: Degenerative changes of the spine. No acute fracture. SOFT TISSUES: Unremarkable. VASCULATURE: No acute findings. LYMPH NODES: Unremarkable. No lymphadenopathy. LUNG APICES: Unremarkable as visualized. OTHER FINDINGS: No abscess identified. CT/Soft Tissue Neck W/WO Contrast IMPRESSION: Some enlargement/inflammation of the right parotid gland. Findings may indicate an infectious or inflammatory parotitis. No salivary duct stone identified. Electronically Signed: Lupillo Galeana MD at 7:54 EST ,
--- NOTE | 2022-05-31 07:13 | EDS_ITS ---
HPI History of Present Illness Chief Complaint: Dental Detail of Chief Complaint: Traumatic right face she will swelling. Informant: patient Onset/Context/Timing Onset: Days Context: Gradual Onset Timing: Continuous Current Severity: Mild Narrative Narrative: 61-year-old male history of hypertension. Since Sunday he has had right lower posterior facial and jaw swelling. He denies any dental pain. He saw a nurse practitioner in urgent care start him on Augmentin. He is seen several dentist and dental specialist who are not sure what is going on they do not think it is dentition. He denies any pain with chewing. He denies any fever or chills. He has never had anything like this before. Prior similar symptoms: No Recent Illness/Hospitalization: No PFSH PFSH Medical History Acute maxillary sinusitis, unspecified Home Medications acetaminophen 500 mg tablet 500 - 1,000 mg PO Q6H PRN PRN Pain 02/28/18 [History Last Taken Unknown] cholecalciferol (vitamin D3) 25 mcg (1,000 unit) tablet (Vitamin D3) 2,000 unit PO DAILY SUPPLEMENT 02/28/18 [History Last Taken Unknown] lisinopril 10 mg-hydrochlorothiazide 12.5 mg tablet (Zestoretic) 1 tab PO DAILY BP 02/28/18 [History Last Taken Unknown] Allergy/AdvReac Type Severity Reaction Status Date / Time latex Allergy Rash Verified 05/31/22 05:57 hydromorphone [From Dilaudid] AdvReac Vomiting Verified 05/31/22 05:57 Social History Smoking Status: Never smoker ROS ROS ED ROS Narrative Right lateral facial swelling. Review of Systems ROS Unobtainable: Denies due to encephalopathy Constitutional Constitutional ED: Denies chills or fever(s) Eyes Eyes: Denies blurry vision ENT ENT ED: Denies ear pain Cardiovascular Cardiovascular: Denies chest pain Respiratory/Chest Respiratory/Chest: Denies cough Gastrointestinal Gastrointestinal: Denies abdominal pain Genitourinary Genitourinary ED: Denies dysuria Integumentary Denies abscess Neurologic Neurologic: Denies headache(s) Psychiatric Psychiatric: Denies anxiety Endocrine Endocrinology: Denies cold intolerance Hematologic/Lymphatic Hematologic/Lymphatic: Reports none Allergic/Immunologic Allergic/Immunologic ED: Denies mouth swelling, tongue swelling or urticaria EXAM Physical Exam Narrative Exam Narrative: Well-appearing 61-year-old male. Vital signs are stable afebrile. H EENT exam dry reactive light. Right TM and canal is completely unremarkable no signs of infection. He is able to open close his mouth without any difficulty. He has multiple areas of caps but there is no dental pain. No gingival swelling or abscess. Posterior pharynx is unremarkable. Right side of his face along the angle of his jaw appears to have swelling consistent with parotid inflammation. Mildly tender. There is no redness. There is no lymphadenopathy in his neck. Lungs are clear. Heart regular rhythm. Abdomen soft. Otherwise exam unremarkable. Const Vital Signs: 05/31/22 05:58 Temperature 98.5 F Temperature Source Oral Pulse Rate 75 Respiratory Rate 18 Blood Pressure 141/87 H Blood Pressure Mean 105 Pulse Ox 95 Oxygen Delivery Method Room Air Positive well nourished and well developed; Negative for cachectic, contractures or unkempt General Appearance ED: well developed and NAD; Negative for unkempt, cachectic, contractures, cyanotic or diaphoretic Nutritional Appearance: Negative for cachectic HEENT Reports moist mucous membranes; Denies dry mucous membranes Negative for trauma or tenderness Mouth ED: No dry mucous membranes Mouth: No dry mucous membranes Eyes PERRL and EOMs intact bilaterally General Eye ED: Negative for pale conjunctiva, scleral icterus or other Neck no lymphadenopathy, supple and no JVD Neck Narrative: Swollen right parotid gland. Mildly tender. No redness. General: tenderness Chest Wall inspection of chest normal and palpation of chest normal Chest: Negative for other Resp normal respiratory effort and clear to auscultation bilaterally Effort and Inspection: Negative for retractions Auscultation: Negative for rales, rhonchi or wheezes Cardio regular rate, regular rhythm, S1 normal heart sound, S2 normal heart sound and no murmurs Palpation: Negative for palpable S3 or palpable S4 Rate: Negative for bradycardia or tachycardic Rhythm: Negative for abnormal rhythm GI normal to inspection, nondistended, normoactive bowel sounds, non-tender, non- distended and no masses Inspection: Negative for abdominal distention Auscultation: normoactive bowel sounds Palpation: soft; Negative for tender or guarding Back/Spine no CVA tenderness General Back: Negative for CVA tenderness Cervical Spine: Negative for cervical spine tenderness Extremity normal to inspection General Extremety ED: Negative for edema or tenderness General Extremity: Negative for edema Neuro oriented x3 Sensorium / Orientation: alert; Negative for orientation impaired or lethargic Motor Exam: strength 5/5 throughout Psych mental status grossly normal Appearance: Negative for unkempt Attitude: No agitated Mood & Affect: Negative for depressed, anxious or tearful Skin no rashes or lesions noted, no wounds and skin turgor normal General Skin Exam: elasticity normal Lesions: No lesion noted Rashes: No rashes noted Trauma: Negative for abrasion Wounds: Negative for wounds noted MDM MDM MDM Narrative Medical decision making narrative: 61-year-old male right facial and jaw swelling most likely secondary to parotid inflammation either from a stone or possible infection. Clinically I do not think this is dental he has no dental pain or gum swelling. He has no trouble moving his jaw. He is already seen dentist and a dental specialist. I am getting a CT to evaluate the soft tissue. CAT scan shows parotid inflammation and/or infection. No stone. Discussed with patient. Continue Augmentin. Follow-up with ENT. Hard candy to cause salivation. Tylenol Motrin for pain. Repeat exam patient is doing well at 8:05 AM and will be discharged home. Radiography Diagnostic Testing: Clinical Impression(s) from Imaging Studies Soft Tissue Neck CT 05/31/22 07:12 IMPRESSION: Some enlargement/inflammation of the right parotid gland. Findings may indicate an infectious or inflammatory parotitis. No salivary duct stone identified. Electronically Signed: Lupillo Galeana MD at 7:54 EST , CAT scan is read by the radiologist shows inflammation and/or infection of the right parotid. No stone visualized. Discussed results with patient. Discharge Plan Triage Chief Complaint: Dental ED Provider: Osiel Rivera Dx/Rx/DC Orders Clinical Impression: Parotid swelling Instructions: ED Salivary Gland Swelling ... Prescriptions: No Action acetaminophen 500 MG tablet 500 - 1,000 mg PO Q6H PRN PRN (Reason: Pain) lisinopril-hydrochlorothiazide [Zestoretic] 1 TABLET tablet 1 tab PO DAILY cholecalciferol (vitamin D3) [Vitamin D3] 1,000 UNIT tablet 2,000 unit PO DAILY Primary Care Provider: Neil Cantu Referrals: Davis Devlin MD [Med Staff - Active Staff] - 3-5 Days if not improving Neil Cantu MD [Primary Care Provider] - Activity Restrictions/Additional Instructions: The CAT scan does not see any obvious stone or obstruction. This is most likely either from a virus or infection. Continue the Augmentin twice a day till gone. Hard candy 5 times a day to cause salivation. Motrin and Tylenol for pain. Follow-up with Dr. Davis Devlin, and ENT doctor, for further evaluation if this does not start improving. Disposition Disposition: Home, Self Care
== END 2022-05-31 08:15 | disposition home or self-care (01) ==
PROVIDERS: Emergency Provider Emergency Medicine; PCP Family Medicine; Visit Provider Emergency Medicine
DX: K11.20 Sialoadenitis, unspecified (principal); I10 Essential (primary) hypertension
CPT/HCPCS: 70492; 99283; Q9967

== ENCOUNTER → 2022-11-07 | Outpatient (CLI) | payer OTHER, SELFPAY ==
--- NOTE | 2022-11-07 08:04 | MRI_ITS ---
STUDY: MR PELVIS WITH AND WITHOUT CONTRAST (PROSTATE) REASON FOR EXAM: Male, 61 years old. Elevated PSA TECHNIQUE: Standardized multiparametric prostate MRI with T1, T2, DWI/ADC sequences were obtained in 3 orthogonal planes, and dynamic contrast enhancement sequences. 25 ml of clariscan contrast material was administered intravenously for the contrast portion of the examination. Exam limited due to susceptibility artifact caused by bilateral hip implants. COMPARISON: None. FINDINGS: The prostate volume measures 23 mm3. The contours of the prostate gland are smooth. There is not mass effect on the bladder base. The transition zone is homogenous. PI-RADS DWI score 2 - Hypointense within a BPH nodule on ADC. PI-RADS T2W score 3 - Heterogeneous signal intensity with obscured margins. Contrast enhancement no early or contemporaneous enhancement; or diffuse multifocal enhancement NOT corresponding to a focal finding on T2W and/or DWI or focal ehancement responding to a lesion demonstrating features of BPH onT2WI (including features of extruded BPH in the PZ). 6 x 6 mm heterogeneous nodule on the lateral right mid prosthetic transitional zone on image 14 of series 9 and image 13 of series 8 with partially obscured margins. The peripheral zone is homogenous. PI-RADS DWI score 1 - No abnormality (normal) on ADC or high b-value DWI. PI-RADS T2W score 1 - Uniformaly hyperintense (normal). Contrast enhancement no early or contemporaneous enhancement; or diffuse multifocal enhancement NOT corresponding to a focal finding on T2W and/or DWI or focal enhancement responding to a lesion demonstrating features of BPH onT2WI (including features of extruded BPH in the PZ). The seminal vesicles demonstrate normal margins and T2 signal pattern. No mass lesion or invasion depicted. The rectoprostatic angles are normal. Urinary bladder is normal without wall thickening. The vascular structures of the are normal. The visualized hollow viscus structures are normal. No bone marrow edema or mass lesion depicted. MRI/Pelvis W/WO Contrast IMPRESSION: 1. PIRADS v2.1 2019 -- 3 - Intermediate (clinically significant cancer is equivocal). Electronically Signed: Sukh Gates (Brooks), at 15:55 EDT ,
[2022-11-07 08:33] LABS: EGFR FINGERSTICK > 60.0000 mL/min (>60)
== END | disposition home or self-care (01) ==
LOC: MRI 07:46
PROVIDERS: PCP Family Medicine; Referring Provider Nurse Practitioner; Visit Provider Nurse Practitioner
DX: R97.20 Elevated prostate specific antigen [PSA] (principal)
CPT/HCPCS: 72197; A9575

== ENCOUNTER → 2023-02-01 | Outpatient (CLI) | payer OTHER, SELFPAY ==
[2023-02-01 09:44] LABS: PSA,Total- Diagnostic 5.58 ng/mL (0.0-4.0)
== END | disposition home or self-care (01) ==
PROVIDERS: PCP Family Medicine; Referring Provider Nurse Practitioner; Visit Provider Nurse Practitioner
DX: R97.20 Elevated prostate specific antigen [PSA] (principal)
CPT/HCPCS: 36415; 84153

== ENCOUNTER → 2023-07-20 | Outpatient (CLI) | payer OTHER, SELFPAY ==
[2023-07-20 15:00] LABS: PSA,Total- Diagnostic 6.05 ng/mL (0.0-4.0)
== END | disposition home or self-care (01) ==
LOC: LAB 13:20
PROVIDERS: PCP Family Medicine; Referring Provider Nurse Practitioner; Visit Provider Nurse Practitioner
DX: R97.20 Elevated prostate specific antigen [PSA] (principal)
CPT/HCPCS: 36415; 84153

== ENCOUNTER → 2023-08-14 | Outpatient (CLI) | payer OTHER, SELFPAY ==
--- NOTE | 2023-08-14 | IMM_PTH ---
PATIENT: DEANDRA VILLALTA LOC: [facility] U#:[id number] AGE/SX: 62/M ROOM: RE08/14/[address]: Dr. Familia Larsen MD : 1960 BED: DIS: 08/14/2023 SPEC #: [id number] RECD: 08/16/23 13:16 STATUS: MITZY REQ #: [id number] DION: 08/14/23 00:[address]: Familia Larsen DEPT: IMMUNOHISTOCHEMISTRY RECD BY: David Ventura ENTERED: 08/16/23 13:17 SP TYPE: IMMUNO OTHR DR: Dr. Neil Cantu MD Tissues: D - PROSTATE LEFT E - PROSTATE LEFT F - PROSTATE LEFT Procedures: 34BE12 (add) P40 (initial) S-100 (add) PHYSICIAN & INSTITUTION [place] [address] SPECIMEN INFORMATION: Tissue Source: D- Left prostate apex biopsy, E- Left prostate mid biopsy, F- Left prostate base biospy Clinical Info: Elevated PSA Specimen Number: [id number] D, E, F CPT code: 55344n4,28673w7 METHODOLOGY: Deparaffinized sections of prefer/formalin-fixed tissue or PAP/DQ stained slides are incubated with monoclonal/polyclonal antibodies/oligonucleotide probes. Localization is made via biotin free immunoperoxidase method. Appropriate controls are performed and reacted as expected. Results on target cell population are indicated in the following table: RESULTS: ANTIBODY / CLONE RESULT Block D P40 (BC28) negative 34BE12 (34BE12) negative S-100 (4C4.9) negative Block E P40 (BC28) negative 34BE12 (34BE12) negative S-100 (4C4.9) negative Block F P40 (BC28) negative 34BE12 (34BE12) negative S-100 (4C4.9) negative These tests were developed and their performance characteristics determined by [facility]. They may not have been cleared or approved by the U.S. Food and Drug Administration. The FDA has determined that such clearance or approval is not necessary. The above immunohistochemical/dualISH markers are ordered and reviewed by the Pathologist. INTERPRETATION: D. Prostate left apex, biopsy: Adenocarcinoma. E. Prostate left mid, biopsy: Adenocarcinoma. F. Prostate left base, biopsy: Adenocarcinoma. AM/mr 08/17/2023
--- NOTE | 2023-08-14 08:00 | PROSBIL_PTH ---
PATIENT: DEANDRA VILLALTA LOC: [facility] U#:[id number] AGE/SX: 62/M ROOM: RE08/14/[address]: Dr. Familia Larsen MD : 1960 BED: DIS: 08/14/2023 SPEC #: [id number] RECD: 08/15/23 08:30 STATUS: MITZY COX #: [id number] DION: 08/14/23 08:[address]: Familia Larsen DEPT: SURGICAL PATHOLOGY RECD BY: Jael Rea ENTERED: 08/15/23 08:30 SP TYPE: PROST BX RADAMES DR: Dr. Neil Cantu MD Tissues: A - PROSTATE RIGHT B - PROSTATE RIGHT C - PROSTATE RIGHT D - PROSTATE LEFT E - PROSTATE LEFT F - PROSTATE LEFT Procedures: PROSTATE BX HEADER OPERATION: Prostate biopsy PRE-OP DIAGNOSIS: Elevated PSA TISSUE SUBMITTED: A - Right apex, B - Right mid, C - Right base, D - Left apex, E - Left mid, F - Left base MICROSCOPIC DIAGNOSIS A. Right prostate, apex, core biopsy: Benign prostatic tissue. B. Right prostate, mid, core biopsy: Benign prostatic tissue. C. Right prostate, base, core biopsy: Benign prostatic tissue. D. Left prostate, apex, core biopsy: Adenocarcinoma. Adenocarcinoma. [place]or grade: 3+3 (6) Cores involved: 2/2 Tissue involved: 2 % Greatest tumor length: 1.0 millimeters See comment. E. Left prostate, mid, core biopsy: Adenocarcinoma. Leonor grade: 3+3 (6) Cores involved: 2/2 Tissue involved: 5 % Greatest tumor length: 1.0 millimeters See comment. F. Left prostate, base, core biopsy: Adenocarcinoma. Adenocarcinoma. [place] grade: 3+3 () Cores involved: 1/2 Tissue involved: 2.0 % Greatest tumor length: millimeters See comment. FANNY/ 08/16/2023 COMMENT D,E,F. Immunohistochemistry ([id number]) supports the above diagnosis. MICROSCOPIC DESCRIPTION Slides are reviewed. GROSS DESCRIPTION A - Received is one container designated prostate, right apex. The specimen consists of two elongated fragments of light chacon-white soft tissue each measuring 1.5 cm in length and 0.1 cm in diameter. The specimen is totally submitted in one cassette. B - Received is one container designated prostate, right mid. The specimen consists of two elongated fragments of light chacon-white soft tissue each measuring 1.5 cm in length and 0.1 cm in diameter. The specimen is totally submitted in one cassette. C - Received is one container designated prostate, right base. The specimen consists of two elongated fragments of light chacon-white soft tissue each measuring 1.5 cm in length and 0.1 cm in diameter. The specimen is totally submitted in one cassette. D - Received is one container designated prostate, left apex. The specimen consists of two elongated fragments of light chacon-white soft tissue each measuring 1.5 cm in length and 0.1 cm in diameter. The specimen is totally submitted in one cassette. E - Received is one container designated prostate, left mid. The specimen consists of two elongated fragments of light chacon-white soft tissue each measuring 1.0 cm in length and 0.1 cm in diameter. The specimen is totally submitted in one cassette. F - Received is one container designated prostate, left base. The specimen consists of two elongated fragments of light chacon-white soft tissue each measuring 1.0 cm in length and 0.1 cm in diameter. The specimen is totally submitted in one cassette. / AM/ 08/15/23 TC:0 [facility] [place]: [id number]
== END | disposition home or self-care (01) ==
LOC: LABSPEC 15:42
PROVIDERS: PCP Family Medicine; Referring Provider Urology; Visit Provider Urology
DX: C61 Malignant neoplasm of prostate (principal); R97.20 Elevated prostate specific antigen [PSA]
CPT/HCPCS: 88305; 88341; 88342; G0416

== ENCOUNTER → 2023-10-23 | Outpatient (CLI) | payer OTHER, SELFPAY ==
[2023-10-23 17:31] LABS: PSA,Total- Diagnostic 5.33 ng/mL (0.0-4.0)
== END | disposition home or self-care (01) ==
LOC: LAB 16:16
PROVIDERS: PCP Family Medicine; Referring Provider Urology; Visit Provider Urology
DX: C61 Malignant neoplasm of prostate (principal)
CPT/HCPCS: 36415; 84153

== ENCOUNTER → 2024-04-24 | Outpatient (CLI) | payer OTHER, SELFPAY ==
[2024-04-24 17:38] LABS: PSA,Total- Diagnostic 6.11 ng/mL (0.0-4.0)
== END | disposition home or self-care (01) ==
PROVIDERS: PCP Family Medicine; Referring Provider Nurse Practitioner; Visit Provider Nurse Practitioner
DX: C61 Malignant neoplasm of prostate (principal)
CPT/HCPCS: 36415; 84153

== ENCOUNTER → 2024-10-08 | Outpatient (CLI) | payer OTHER, SELFPAY ==
[2024-10-08 17:04] LABS: PSA,Total- Diagnostic 5.56 ng/mL (0.00-4.00)
== END | disposition home or self-care (01) ==
LOC: LAB 15:53
PROVIDERS: PCP Family Medicine; Referring Provider Urology; Visit Provider Urology
DX: C61 Malignant neoplasm of prostate (principal)
CPT/HCPCS: 36415; 84153